=== PATIENT | female | born 1990 | race African-American/Black ===

== ENCOUNTER 2018-11-17 19:28 | Emergency (ER) | payer MEDICAID ==
[~2018-11-17] VITALS: Ht 170.2 cm; Wt 80.0 kg
[~2018-11-17 19:28] MED LIST: FERR-43 PO; PREN-55 PO
[2018-11-17 20:02] VITALS: BP 127/78
== END 2018-11-17 23:20 | disposition home or self-care (01) ==
LOC: ER 19:28
DX: N93.8 Other specified abnormal uterine and vaginal bleeding (principal); F17.200 Nicotine dependence, unspecified, uncomplicated; Z90.49 Acquired absence of other specified parts of digestive tract; Z98.890 Other specified postprocedural states
CPT/HCPCS: 99283; 99284

== ENCOUNTER 2020-01-27 19:18 | Emergency (ER) | payer MEDICAID ==
[~2020-01-27] VITALS: Ht 170.2 cm; Wt 68.0 kg
[2020-01-27 20:04] LABS: CLARITY URINE TURBID (CLEAR); COLOR URINE YELLOW (YELLOW); KETONES URINE NEGATIVE (NEGATIVE); LEUKOCYTE ESTERASE URINE 2+ (NEGATIVE); NITRITE URINE POSITIVE (NEGATIVE); OCCULT BLOOD URINE 3+ (NEGATIVE); PH URINE 5.5 (4.5-8.0); PROTEIN URINE 3+ (NEGATIVE); SPECIFIC GRAVITY URINE 1.026 (1.005-1.030)
[2020-01-27] MEDS ORDERED: ACETAMINOPHEN 325MG TABLET PO PRN (20:15)
[2020-01-27] MEDS ORDERED: LIDOCAINE 1%/EPI 1:100,000 10 ML VIAL IJ ONE (20:30)
[2020-01-27] MEDS ORDERED: LIDOCAINE HCL/EPINEPHRINE 1%-EPI 1:100,000 20 ML VIAL ONE (20:35)
[2020-01-27] MEDS ORDERED: LIDOCAINE HCL/EPINEPHRINE 1%-EPI 1:100,000 20 ML VIAL INFIL ONE (20:45)
[2020-01-27 21:07] LABS: BASOPHILS % 0.3 % (0.0-2.0); EOSINOPHILS % 2.4 % (0.0-5.0); HEMATOCRIT. 42.4 % (36.0-48.0); LYMPHOCYTES % 14.8 % (20.0-50.0); MEAN CORPUSCULAR HEMOGLOBIN 28.5 pg (28.0-32.0); MEAN CORPUSCULAR VOLUME 86.1 fL (81.0-99.0); MEAN PLATELET VOLUME 7.1 fl (7.4-10.4); MONOCYTES % 7.2 % (2.0-8.0); NEUTROPHILS % 75.3 % (40.0-76.0); PLATELET 406 x1000/uL (130-400); RED BLOOD CELL COUNT 4.92 mill/uL (4.2-5.4); RED CELL DISTRIBUTION WIDTH 17.4 % (11.6-14.6)
[2020-01-27 21:18] LABS: HCG SCREEN NEGATIVE
[2020-01-27 21:28] LABS: CHLORIDE 103 mEq/L (98-107)
[2020-01-27 21:39] LABS: B-HCG QUANTITATIVE < 1 mIU/mL (<3)
[2020-01-27 22:42] VITALS: BP 125/77
== END 2020-01-27 22:43 | disposition home or self-care (01) ==
LOC: ER 19:18
DX: N39.0 Urinary tract infection, site not specified (principal); N75.0 Cyst of Bartholin's gland; Z98.890 Other specified postprocedural states; Z90.49 Acquired absence of other specified parts of digestive tract; Z79.899 Other long term (current) drug therapy
CPT/HCPCS: 36415; 56420; 76830; 76856; 80053; 81003; 81025; 82962; 84702; 84703; 85025; 87077; 87086; 87186; 99284; J3490

== ENCOUNTER 2020-04-23 02:45 | Emergency (ER) | payer MEDICAID ==
[~2020-04-23] VITALS: Ht 170.2 cm; Wt 68.0 kg
[2020-04-23] MEDS ORDERED: KETOROLAC 60MG/2ML VIAL IM STA (03:12)
[2020-04-23] MEDS ORDERED: LIDOCAINE HCL/PF 1% 10 MG/ML 5ML VIAL IJ ONE (03:30)
[2020-04-23] MEDS ORDERED: BACITRACIN ZINC OINT UDPKT TOP ONE (03:30)
[2020-04-23 05:11] VITALS: BP 120/72
== END 2020-04-23 05:13 | disposition home or self-care (01) ==
LOC: ER 02:45
DX: N75.1 Abscess of Bartholin's gland (principal); Z98.890 Other specified postprocedural states; Z90.49 Acquired absence of other specified parts of digestive tract
CPT/HCPCS: 56420; 96372; 99284; J1885; J3490; 99283

== ENCOUNTER 2021-03-26 22:48 | Emergency (ER) | payer MEDICAID ==
[~2021-03-26] VITALS: Ht 172.7 cm; Wt 70.0 kg
[2021-03-26] MEDS ORDERED: TETANUS, DIPHTHERIA, PERTUSSIS VAC/PF 0.5ML (>7YR OLD) IM ONE (23:45)
[2021-03-26] MEDS ORDERED: LIDOCAINE HCL/EPINEPHRINE 1%-EPI 1:100,000 20 ML VIAL INFIL ONE (23:45)
[2021-03-26] MEDS ORDERED: ACETAMINOPHEN 325MG TABLET PO ONE (23:45)
[2021-03-26] MEDS ORDERED: BACITRACIN ZINC OINT UDPKT TOP ONE (23:45)
[2021-03-27] MEDS ORDERED: MORPHINE SULFATE 2 MG/ML CPJ (NOT FOR IM USE) IV ONE (03:45)
[2021-03-27 04:10] VITALS: BP 116/83
== END 2021-03-27 05:13 | disposition short-term general hospital (02) ==
LOC: ER 22:48
DX: S02.32XA Fracture of orbital floor, left side, initial encounter for closed fracture (principal); R58 Hemorrhage, not elsewhere classified; Y08.89XA Assault by other specified means, initial encounter; Y93.89 Activity, other specified; Y92.89 Other specified places as the place of occurrence of the external cause; Y99.8 Other external cause status; Z98.890 Other specified postprocedural states
CPT/HCPCS: 12013; 70450; 70480; 81025; 90471; 90715; 96374; 99285; J2270; J3490